=== PATIENT | male | born 1935 | race Caucasian/White ===

== ENCOUNTER → 2017-01-16 | Outpatient (CLI) | payer OTHER ==
[~2017-01-16] MED LIST: ALBU8.5H8 INH; CITA40TA5 PO; DUTA0.5C PO; GABA300C10 PO; GABA600T2 PO; GEMF600T3 PO; TAMS0.4C2 PO; TRAM50TA2 PO; VIT1CAPS42 PO; ZOLP10TA5 PO
== END | disposition home or self-care (01) ==
LOC: RAD 08:31
PROVIDERS: ATTEND Orthopaedic Surgery Orthopaedic Surgery of the Spine
DX: M51.36 Other intervertebral disc degeneration, lumbar region (principal); M51.47 Schmorl's nodes, lumbosacral region; M51.27 Other intervertebral disc displacement, lumbosacral region; M48.07 Spinal stenosis, lumbosacral region
CPT/HCPCS: 72148

== ENCOUNTER 2018-05-25 17:27 | Inpatient (IN) | payer OTHER ==
[~2018-05-25] VITALS: Ht 172.7 cm; Wt 91.1 kg
[~2018-05-25 17:27] MED LIST changes: -GABA600T2 PO; +GABA600T7 PO; -GEMF600T3 PO; +GEMF600T8 PO
--- NOTE | 2018-05-25 17:49 | NUR ---
C/O left sided chest pain radiating to left shoulder since eating pizza earlier today. Patient states, "I think it's just acid reflux."
--- NOTE | 2018-05-25 17:49 | NUR ---
Assumed care of patient. C/O cough since Sunday. Dx'ed with UC with PN, taking abx for several days. Patient reports feeling slightly better, but then increased SOB today. 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 Family member at bedside. Will continue to monitor.
[2018-05-25] MEDS ORDERED: CITA40TA5 PO (18:16)
[2018-05-25] MEDS ORDERED: AMLO-150 PO (18:16)
[2018-05-25] MEDS ORDERED: ROPI1TAB2 PO (18:16)
[2018-05-25] MEDS ORDERED: NABU500T PO (18:16)
[2018-05-25] MEDS ORDERED: FAMO20TA7 PO (18:16)
[2018-05-25] MEDS ORDERED: OMEP40CA6 PO (18:16)
[2018-05-25] MEDS ORDERED: FINA5TAB4 PO (18:16)
[2018-05-25] MEDS ORDERED: FLUT1BLS3 PO (18:16)
[2018-05-25] MEDS ORDERED: [UNRECOGNIZED DRUG - OTHER] PO (18:16)
[2018-05-25] MEDS ORDERED: TAMS0.4C2 PO (18:16)
[2018-05-25] MEDS ORDERED: ASPIRIN 81 MG TABLET CHEW ONE (18:19)
[2018-05-25 18:21] LABS: BASOPHILS # (AUTO) 0.04 x10^3/uL (0-0.1); BASOPHILS % (AUTO) 0 % (0-1); EOSINOPHILS # (AUTO) 0.35 x10^3/uL (0-0.4); EOSINOPHILS % (AUTO) 3 % (1-7); LYMPHOCYTES # (AUTO) 1.32 x10^3/uL (1-3.4); LYMPHOCYTES % (AUTO) 10 % (22-44); MD NO; MEAN CORPUSCULAR HEMOGLOBIN 30.8 pg (27.5-34.5); MEAN CORPUSCULAR HGB CONC 34.2 g/dL (33.2-36.2); MEAN CORPUSCULAR VOLUME 89.9 fL (81-97); MEAN PLATELET VOLUME 8.7 fL (7.4-10.4); MONOCYTES # (AUTO) 1.22 x10^3/uL (0.2-0.8); MONOCYTES % (AUTO) 10 % (2-9); NEUTROPHILS # (AUTO) 9.93 x10^3/uL (1.8-6.8); NEUTROPHILS % (AUTO) 77 % (42-75); PLATELET COUNT 358 x10^3/uL (130-400); RED BLOOD COUNT 4.13 x10^6/uL (4.38-5.82); RED CELL DISTRIBUTION WIDTH 14.9 % (9.4-14.8)
[2018-05-25] MEDS ORDERED: CALCIUM CARBONATE 500 MG TAB.CHEW PO ONE (18:30)
[2018-05-25] MEDS ORDERED: ASPIRIN 81 MG TABLET CHEW PO ONE (18:30)
[2018-05-25] MEDS ORDERED: CALCIUM CARBONATE 500 MG TAB.CHEW ONE (18:30)
[2018-05-25 18:32] LABS: ALBUMIN 2.9 g/dL (3.4-5.0); ANION GAP 8 mmol/L (5-15); CALCIUM 8.6 mg/dL (8.5-10.1); CHLORIDE 111 mmol/L (98-107); INTERNATIONAL NORMALIZED RATIO 1.03 (0.93-1.1); PROTHROMBIN TIME 10.9 Seconds (9.6-11.5)
[2018-05-25 18:38] LABS: ALANINE AMINOTRANSFERASE 26 U/L (12-78); ALKALINE PHOSPHATASE 137 U/L (45-117); BILIRUBIN,TOTAL 0.3 mg/dL (0.2-1.0); CREATININE 1.16 mg/dL (0.7-1.3); TOTAL PROTEIN 7.9 g/dL (6.4-8.2); TROPONIN I < 0.015 ng/mL (0.000-0.045)
--- NOTE | 2018-05-25 18:48 | NUR ---
IV started. VSS. No other needs at this time.
--- NOTE | 2018-05-25 19:22 | NUR ---
Report to JESE Cobos.
[2018-05-25 19:53] VITALS: BP 141/56
[2018-05-25 20:45] VITALS: BP 141/56
[2018-05-25] MEDS ORDERED: SODIUM CHLORIDE 0.9% 1,000 ML IV SCH (21:13)
[2018-05-25] MEDS ORDERED: DOCUSATE 100 MG CAPSULE PO PRN (21:30)
[2018-05-25] MEDS ORDERED: LABETALOL 5MG/ML, 20ML IVPush PRN (21:30)
[2018-05-25] MEDS ORDERED: POLYETHYLENE GLYCOL 17 GM PACKET PO PRN (21:30)
[2018-05-25] MEDS ORDERED: ONDANSETRON 2MG/ML, 2ML IVPush PRN (21:30)
[2018-05-25] MEDS ORDERED: morphine SULFATE 10 MG/ML, 1ML IVPush PRN (21:30)
[2018-05-25] MEDS ORDERED: ROPINIROLE HCL 1 MG PO SCH (21:30)
[2018-05-25] MEDS ORDERED: BISACODYL 10 MG SUPP PR PRN (21:30)
[2018-05-25] MEDS ORDERED: PROMETHAZINE 25 MG/ML, 1ML IM PRN (21:30)
[2018-05-25] MEDS ORDERED: ONDANSETRON ODT 4 MG PO PRN (21:30)
[2018-05-25] MEDS ORDERED: GABAPENTIN 300 MG CAPSULE PO PRN (21:30)
[2018-05-25] MEDS ORDERED: hydrALAzine 20 MG/ML, 1ML IVPush PRN (21:30)
[2018-05-25] MEDS: CEFTRIAXONE PMX 2GM/50ML 50 ML IV SCH (21:45)
[2018-05-25 22:05] LABS: FREE T4 (FREE THYROXINE) 2.43 ng/dL (0.76-1.46); THYROID STIMULATING HORMONE 2.35 mIU/L (0.358-3.740)
[2018-05-25 22:24] LABS: HEMOGLOBIN A1C 5.7 % (4.2-6.3)
[2018-05-25] MEDS: GEMFIBROZIL 600 MG TABLET PO SCH (22:34)
[2018-05-25] MEDS: GUAIFENESIN 200 MG TABLET PO SCH (22:34)
[2018-05-25] MEDS: ROPINIROLE 1MG TABLET PO SCH (22:34)
[2018-05-25] MEDS: HEPARIN 5,000 UNITS/ML, 1ML SQ SCH (22:35)
[2018-05-25] MEDS: DOXYCYCLINE 100 MG in DEXTROSE 5% 250 ML IV SCH (23:23)
[2018-05-25] MEDS ORDERED: ALBUTEROL SULFATE 2.5 MG/3 ML NPPB PRN (23:30)
[2018-05-26 02:54] VITALS: BP 135/63
[2018-05-26 04:58] LABS: BASOPHILS # (AUTO) 0.05 x10^3/uL (0-0.1); BASOPHILS % (AUTO) 0 % (0-1); EOSINOPHILS # (AUTO) 0.35 x10^3/uL (0-0.4); EOSINOPHILS % (AUTO) 3 % (1-7); LYMPHOCYTES # (AUTO) 1.59 x10^3/uL (1-3.4); LYMPHOCYTES % (AUTO) 13 % (22-44); MD NO; MEAN CORPUSCULAR HEMOGLOBIN 30.3 pg (27.5-34.5); MEAN CORPUSCULAR HGB CONC 33.5 g/dL (33.2-36.2); MEAN CORPUSCULAR VOLUME 90.3 fL (81-97); MEAN PLATELET VOLUME 8.9 fL (7.4-10.4); MONOCYTES # (AUTO) 1.23 x10^3/uL (0.2-0.8); MONOCYTES % (AUTO) 10 % (2-9); NEUTROPHILS # (AUTO) 9.01 x10^3/uL (1.8-6.8); NEUTROPHILS % (AUTO) 74 % (42-75); PLATELET COUNT 319 x10^3/uL (130-400); RED BLOOD COUNT 3.86 x10^6/uL (4.38-5.82); RED CELL DISTRIBUTION WIDTH 14.7 % (9.4-14.8)
[2018-05-26 05:04] LABS: ALBUMIN 2.8 g/dL (3.4-5.0); ANION GAP 8 mmol/L (5-15); CALCIUM 8.5 mg/dL (8.5-10.1); CHLORIDE 111 mmol/L (98-107); CREATININE 1.14 mg/dL (0.7-1.3)
[2018-05-26 05:07] LABS: ALANINE AMINOTRANSFERASE 22 U/L (12-78); ALKALINE PHOSPHATASE 116 U/L (45-117); BILIRUBIN,TOTAL 0.3 mg/dL (0.2-1.0); CHOL/HDL RATIO 3.2; CHOLESTEROL, TOTAL 108 mg/dL (140-239); HDL CHOL % 31 % (26-37); HDL CHOLESTEROL (DIRECT) 34 mg/dL (40-60); LDL CHOLESTEROL,CALCULATED 60 mg/dL (54-169); LDL/HDL RATIO 1.8 (0.5-3.0); TOTAL PROTEIN 7.3 g/dL (6.4-8.2); TRIGLYCERIDES 72 mg/dL (50-200); VLDL CHOLESTEROL 14 mg/dL (0-25)
[2018-05-26 06:41] VITALS: BP 127/71
[2018-05-26] MEDS: OMEPRAZOLE 20 MG CAPSULE.DR PO SCH (08:04)
[2018-05-26] MEDS: GEMFIBROZIL 600 MG TABLET PO SCH ×2 (08:04→21:47)
[2018-05-26] MEDS: GABAPENTIN 300 MG CAPSULE PO SCH (08:04)
[2018-05-26] MEDS: TAMSULOSIN 0.4 MG CAP.ER.24H PO SCH (08:04)
[2018-05-26] MEDS: AMLODIPINE 5 MG TABLET PO SCH (08:04)
[2018-05-26] MEDS: FINASTERIDE 5 MG TABLET PO SCH (08:04)
[2018-05-26] MEDS: CITALOPRAM 20 MG TABLET PO SCH (08:04)
[2018-05-26] MEDS: HEPARIN 5,000 UNITS/ML, 1ML SQ SCH ×3 (08:05→22:58)
[2018-05-26] MEDS ORDERED: OMNIPAQUE 350 MG/ML, 75ML BOTTLE ONE (09:06)
[2018-05-26] MEDS: GUAIFENESIN 200 MG TABLET PO SCH ×2 (10:25→21:48)
[2018-05-26] MEDS: DOXYCYCLINE 100 MG in DEXTROSE 5% 250 ML IV SCH ×2 (10:25→22:58)
[2018-05-26 12:35] VITALS: BP 131/60
[2018-05-26] MEDS: ACETAMINOPHEN 325 MG TABLET PO PRN ×2 (15:44→21:48)
[2018-05-26 20:53] VITALS: BP 171/69
[2018-05-26] MEDS: ROPINIROLE 1MG TABLET PO SCH (21:47)
[2018-05-26] MEDS: CEFTRIAXONE PMX 2GM/50ML 50 ML IV SCH (21:47)
[2018-05-27 01:48] VITALS: BP 148/57
[2018-05-27 06:33] VITALS: BP 154/64
[2018-05-27] MEDS: AMLODIPINE 5 MG TABLET PO SCH (08:51)
[2018-05-27] MEDS: FINASTERIDE 5 MG TABLET PO SCH (08:51)
[2018-05-27] MEDS: HEPARIN 5,000 UNITS/ML, 1ML SQ SCH ×2 (08:51→15:55)
[2018-05-27] MEDS: OMEPRAZOLE 20 MG CAPSULE.DR PO SCH (08:51)
[2018-05-27] MEDS: DOXYCYCLINE 100 MG in DEXTROSE 5% 250 ML IV SCH ×2 (08:52→21:39)
[2018-05-27] MEDS: TAMSULOSIN 0.4 MG CAP.ER.24H PO SCH (08:52)
[2018-05-27] MEDS: GEMFIBROZIL 600 MG TABLET PO SCH ×2 (08:52→20:51)
[2018-05-27] MEDS: CITALOPRAM 20 MG TABLET PO SCH (08:52)
[2018-05-27] MEDS: GABAPENTIN 300 MG CAPSULE PO SCH (08:52)
[2018-05-27] MEDS: GUAIFENESIN 200 MG TABLET PO SCH ×2 (08:52→20:51)
[2018-05-27 12:01] VITALS: BP 130/59
[2018-05-27 20:19] VITALS: BP 132/70
[2018-05-27] MEDS: CEFTRIAXONE PMX 2GM/50ML 50 ML IV SCH (20:50)
[2018-05-27] MEDS: ROPINIROLE 1MG TABLET PO SCH (20:51)
[2018-05-28 01:55] VITALS: BP 129/54
[2018-05-28 06:52] VITALS: BP 170/71
[2018-05-28 07:34] VITALS: BP 149/69
[2018-05-28] MEDS: HEPARIN 5,000 UNITS/ML, 1ML SQ SCH ×4 (07:43→23:28)
[2018-05-28] MEDS ORDERED: LIDOCAINE-MPF 1%, 5ML ONE (08:05)
[2018-05-28] MEDS ORDERED: FENTANYL PF 100 MCG/2ML ONE (08:36)
[2018-05-28] MEDS ORDERED: MIDAZOLAM 1 MG/ML, 5ML ONE (08:36)
[2018-05-28] MEDS ORDERED: NALOXONE 1 MG/ML, 2ML ONE (08:37)
[2018-05-28] MEDS ORDERED: FLUMAZENIL 0.1 MG/1 ML, 5ML ONE (08:37)
[2018-05-28] MEDS: DOXYCYCLINE 100 MG in DEXTROSE 5% 250 ML IV SCH ×2 (11:01→23:28)
[2018-05-28 12:33] VITALS: BP 143/67
[2018-05-28] MEDS: FINASTERIDE 5 MG TABLET PO SCH (13:10)
[2018-05-28] MEDS: GUAIFENESIN 200 MG TABLET PO SCH ×2 (13:10→23:28)
[2018-05-28] MEDS: OMEPRAZOLE 20 MG CAPSULE.DR PO SCH (13:10)
[2018-05-28] MEDS: GABAPENTIN 300 MG CAPSULE PO SCH (13:11)
[2018-05-28] MEDS: TAMSULOSIN 0.4 MG CAP.ER.24H PO SCH (13:11)
[2018-05-28] MEDS: AMLODIPINE 5 MG TABLET PO SCH (13:11)
[2018-05-28] MEDS: CITALOPRAM 20 MG TABLET PO SCH (13:11)
[2018-05-28] MEDS: GEMFIBROZIL 600 MG TABLET PO SCH ×2 (13:11→21:13)
[2018-05-28] MEDS: HYDROcodone/APAP 5/325 TABLET PO PRN ×2 (15:49→21:14)
[2018-05-28] MEDS: ROPINIROLE 1MG TABLET PO SCH (21:13)
[2018-05-28] MEDS: CEFTRIAXONE PMX 2GM/50ML 50 ML IV SCH (21:14)
[2018-05-28 21:36] VITALS: BP 139/67
[2018-05-29 00:49] VITALS: BP 137/67
[2018-05-29] MEDS: HEPARIN 5,000 UNITS/ML, 1ML SQ SCH ×2 (07:44→15:48)
[2018-05-29 08:32] VITALS: BP 168/68
[2018-05-29] MEDS: FINASTERIDE 5 MG TABLET PO SCH (09:28)
[2018-05-29] MEDS: CITALOPRAM 20 MG TABLET PO SCH (09:58)
[2018-05-29] MEDS: GEMFIBROZIL 600 MG TABLET PO SCH (09:58)
[2018-05-29] MEDS: GABAPENTIN 300 MG CAPSULE PO SCH (09:58)
[2018-05-29] MEDS: OMEPRAZOLE 20 MG CAPSULE.DR PO SCH (09:58)
[2018-05-29] MEDS: AMLODIPINE 5 MG TABLET PO SCH (09:58)
[2018-05-29] MEDS: TAMSULOSIN 0.4 MG CAP.ER.24H PO SCH (09:59)
[2018-05-29] MEDS: DOXYCYCLINE 100 MG in DEXTROSE 5% 250 ML IV SCH (11:21)
[2018-05-29] MEDS: GUAIFENESIN 200 MG TABLET PO SCH (13:11)
[2018-05-29 14:34] VITALS: BP 123/63
[2018-05-29] MEDS ORDERED: AMOX1TAB64 PO (14:38)
== END 2018-05-29 16:37 | disposition home health service (06) | DRG 177 ==
LOC: ED 18:20 → EDIP 18:53 → 3NE 19:43 → DCLOUNGE 05-29 16:26
PROVIDERS: ADMIT Internal Medicine; ATTEND Family Medicine
PROC: 0BBC3ZX Excision of Right Upper Lung Lobe, Percutaneous Approach, Diagnostic (ICD-10-PCS; principal; 2018-05-28)
PROC: 0W9G3ZX Drainage of Peritoneal Cavity, Percutaneous Approach, Diagnostic (ICD-10-PCS; 2018-05-28)
DX: J15.6 Pneumonia due to other Gram-negative bacteria (principal); J85.1 Abscess of lung with pneumonia; J44.0 Chronic obstructive pulmonary disease with (acute) lower respiratory infection; E44.0 Moderate protein-calorie malnutrition; J93.9 Pneumothorax, unspecified; M19.90 Unspecified osteoarthritis, unspecified site; D64.9 Anemia, unspecified; E78.1 Pure hyperglyceridemia; F32.9 Major depressive disorder, single episode, unspecified; I10 Essential (primary) hypertension; K21.9 Gastro-esophageal reflux disease without esophagitis; K44.9 Diaphragmatic hernia without obstruction or gangrene; N40.0 Benign prostatic hyperplasia without lower urinary tract symptoms; Z87.891 Personal history of nicotine dependence; Z68.30 Body mass index [BMI] 30.0-30.9, adult; Z88.8 Allergy status to other drugs, medicaments and biological substances
CPT/HCPCS: 32405; 36415; 49405; 71045; 71260; 75989; 80053; 80061; 83036; 83735; 84439; 84443; 84484; 85025; 85610; 85730; 87015; 87040; 87070; 87075; 87077; 87102; 87116; 87181; 87205; 87206; 88305; 88341; 88342; 93005; 99156; 99157; 99285; G0378; J0696; J1644; J2250; J3010; J7060; J7613; Q0162; Q9967; J2310; J7030

== ENCOUNTER 2018-08-30 13:47 | Emergency (ER) | payer OTHER ==
[~2018-08-30] VITALS: Ht 172.7 cm; Wt 96.0 kg
[~2018-08-30 13:47] MED LIST changes: +AMLO-150 PO; +AMOX1TAB64 PO; +FAMO20TA7 PO; +FINA5TAB4 PO; +FLUT1BLS3 PO; +NABU500T PO; +OMEP40CA6 PO; +ROPI1TAB2 PO; +[UNRECOGNIZED DRUG - OTHER] PO
[2018-08-30 14:24] VITALS: BP 136/56
== END 2018-08-30 14:46 | disposition home or self-care (01) ==
LOC: ED 14:44
DX: H72.91 Unspecified perforation of tympanic membrane, right ear (principal); H66.001 Acute suppurative otitis media without spontaneous rupture of ear drum, right ear; I10 Essential (primary) hypertension; J44.9 Chronic obstructive pulmonary disease, unspecified; M19.90 Unspecified osteoarthritis, unspecified site; Z90.89 Acquired absence of other organs
CPT/HCPCS: 99283

== ENCOUNTER 2019-07-01 17:54 | Emergency (ER) | payer MEDICARE, OTHER ==
[~2019-07-01] VITALS: Ht 172.7 cm; Wt 94.3 kg
[~2019-07-01 17:54] MED LIST changes: +OMEP40CA42 PO; -OMEP40CA6 PO; -ROPI1TAB2 PO; +ROPI1TAB4 PO
[2019-07-01] MEDS ORDERED: NABUMETONE (18:24)
[2019-07-01] MEDS ORDERED: TRAZODONE (18:25)
[2019-07-01] MEDS ORDERED: UNKNOWN INHALER (18:27)
--- NOTE | 2019-07-01 18:28 | NUR ---
BREAK RN: PT SEEN BY DR FELDER. PT REPORTS SOB AND COUGHING. VS STABLE. NO ACUTE DISTRESS NOTED. LAB IN ROOM. FLU SWAB SENT. FAMILY AT BEDSIDE. CALL LIGHT IN PLACE. WILL CONTINUE TO MOINTOR WHILE PRIMARY RN IS ON BREAK.
[2019-07-01] MEDS ORDERED: [UNRECOGNIZED DRUG - REMARK] (18:30)
[2019-07-01] MEDS ORDERED: SODIUM CHLORIDE FLUSH 10ML SYR IVF ONE (18:30)
[2019-07-01 18:43] LABS: BASOPHILS # (AUTO) 0.05 x10^3/uL (0-0.1); BASOPHILS % (AUTO) 1 % (0-1); EOSINOPHILS # (AUTO) 0.36 x10^3/uL (0-0.4); EOSINOPHILS % (AUTO) 4 % (1-7); LYMPHOCYTES # (AUTO) 2.16 x10^3/uL (1-3.4); LYMPHOCYTES % (AUTO) 25 % (22-44); MD NO; MEAN CORPUSCULAR HGB CONC 33.4 g/dL (33.2-36.2); MEAN CORPUSCULAR VOLUME 92.9 fL (81-97); MEAN PLATELET VOLUME 9.4 fL (7.4-10.4); MONOCYTES # (AUTO) 1.25 x10^3/uL (0.2-0.8); MONOCYTES % (AUTO) 14 % (2-9); NEUTROPHILS # (AUTO) 4.96 x10^3/uL (1.8-6.8); NEUTROPHILS % (AUTO) 57 % (42-75); PLATELET COUNT 281 x10^3/uL (130-400); RED BLOOD COUNT 4.79 x10^6/uL (4.38-5.82); RED CELL DISTRIBUTION WIDTH 14.6 % (9.4-14.8)
[2019-07-01 18:52] LABS: ALANINE AMINOTRANSFERASE 23 U/L (12-78); ALBUMIN 3.5 g/dL (3.4-5.0); ANION GAP 10 mmol/L (5-15); CALCIUM 9.5 mg/dL (8.5-10.1); CHLORIDE 110 mmol/L (98-107)
--- NOTE | 2019-07-01 18:53 | NUR ---
REPORT GIVEN TO JESE CHILDERS
--- NOTE | 2019-07-01 18:55 | NUR ---
REPORT TO JESE PERAZA
[2019-07-01 18:56] LABS: ALKALINE PHOSPHATASE 98 U/L (45-117); BILIRUBIN,TOTAL 0.3 mg/dL (0.2-1.0); TOTAL PROTEIN 7.8 g/dL (6.4-8.2); TROPONIN I < 0.015 ng/mL (0.000-0.045)
--- NOTE | 2019-07-01 18:58 | NUR ---
PT RESTING ON [place] WITH FAMILY AT FOR SUPPORT. PT UPDATED ON POC. PT REPORTS "NOT FEELING WELL" X2 DAYS. REPORTS SOB, SINUS PRESSURE, WHATLEY, AND COUGH WELL DIFFICULTY SLEEPING. PT DENIES ANY OTHER C/O AT THIS TIME. PT ON MONITORING, CALL LIGHT WITHIN REACH, X2 RAILS RAISED. ROOM DIMMED FOR PT COMFORT.
[2019-07-01 19:01] LABS: RAPID INFLUENZA A Negative (Negative); RAPID INFLUENZA B Negative (Negative)
--- NOTE | 2019-07-01 19:38 | NUR ---
ERP IN ROOM TO DISCUSS POC WITH PT.
[2019-07-01 19:53] VITALS: BP 171/66
== END 2019-07-01 20:00 | disposition home or self-care (01) ==
LOC: ED 18:54
DX: J20.9 Acute bronchitis, unspecified (principal); I10 Essential (primary) hypertension; J44.9 Chronic obstructive pulmonary disease, unspecified; Z90.89 Acquired absence of other organs; Z87.891 Personal history of nicotine dependence
CPT/HCPCS: 36415; 71045; 80053; 83880; 84484; 85025; 87400; 93005; 99284; 99285

== ENCOUNTER 2019-09-03 16:37 | Emergency (ER) | payer MEDICARE ==
[~2019-09-03] VITALS: Ht 172.7 cm; Wt 96.2 kg
[~2019-09-03 16:37] MED LIST changes: +NABUMETONE; +TRAZODONE; +UNKNOWN INHALER; +[UNRECOGNIZED DRUG - REMARK]
--- NOTE | 2019-09-03 17:10 | NUR ---
PT AMBULATED TO THE BR W/ A STEADY GAIT.
--- NOTE | 2019-09-03 17:26 | NUR ---
THIS IS A 84 YO M W/ C/O SOB, COUGH AND CHILLS X3 WEEKS. PT REPORTS HX OF COPD BUT DOES NOT WEAR O2 AT HOME. PT REPORTS HE HAS BEEN ON HTN MEDS IN THE PAST BUT HIS MD STOPPED THEM. CURRENT BP 205/98, OTHER VS WDL. DENIES CP/WHATLEY/N/V PT IS RESTING ON [employer] W/ CALL LIGHT IN REACH, SIDE RAILS UPX2. LAB IN ROOM. PT MEDICATED PER EMAR. AWAITING RESULTS.
[2019-09-03 17:29] LABS: BASOPHILS # (AUTO) 0.01 x10^3/uL (0-0.1); BASOPHILS % (AUTO) 0 % (0-1); EOSINOPHILS # (AUTO) 0.39 x10^3/uL (0-0.4); EOSINOPHILS % (AUTO) 4 % (1-7); LYMPHOCYTES # (AUTO) 1.24 x10^3/uL (1-3.4); LYMPHOCYTES % (AUTO) 13 % (22-44); MD NO; MEAN CORPUSCULAR HEMOGLOBIN 30.9 pg (27.5-34.5); MEAN CORPUSCULAR HGB CONC 33.4 g/dL (33.2-36.2); MEAN CORPUSCULAR VOLUME 92.6 fL (81-97); MEAN PLATELET VOLUME 9.4 fL (7.4-10.4); MONOCYTES # (AUTO) 1.05 x10^3/uL (0.2-0.8); MONOCYTES % (AUTO) 11 % (2-9); NEUTROPHILS # (AUTO) 6.79 x10^3/uL (1.8-6.8); NEUTROPHILS % (AUTO) 72 % (42-75); PLATELET COUNT 298 x10^3/uL (130-400); RED BLOOD COUNT 4.83 x10^6/uL (4.38-5.82); RED CELL DISTRIBUTION WIDTH 14.8 % (9.4-14.8)
[2019-09-03] MEDS ORDERED: DOXYCYCLINE 100MG TABLET PO ONE (17:30)
[2019-09-03] MEDS ORDERED: DOXYCYCLINE 100MG TABLET ONE (17:32)
--- NOTE | 2019-09-03 17:32 | NUR ---
METAL CABINET FINISHER: JOEY BEAL [phone] DAUGHTER CALLED AND WILL NEED A CALL WHEN DISPOSITION.
[2019-09-03 17:40] LABS: ALANINE AMINOTRANSFERASE 28 U/L (12-78); ALBUMIN 3.9 g/dL (3.4-5.0); ANION GAP 5 mmol/L (5-15); CALCIUM 9.4 mg/dL (8.5-10.1); CHLORIDE 110 mmol/L (98-107)
[2019-09-03 17:43] LABS: ALKALINE PHOSPHATASE 96 U/L (45-117); BILIRUBIN,TOTAL 0.5 mg/dL (0.2-1.0); CREATININE 1.59 mg/dL (0.7-1.3); TOTAL PROTEIN 8.4 g/dL (6.4-8.2)
[2019-09-03 17:50] VITALS: BP 202/84
[2019-09-03] MEDS ORDERED: AMLODIPINE 5 MG TABLET ONE (17:55)
[2019-09-03] MEDS ORDERED: CEFDINIR 300 MG CAPSULE ONE (17:59)
[2019-09-03] MEDS ORDERED: AMLODIPINE 5 MG TABLET PO ONE (18:00)
[2019-09-03] MEDS ORDERED: CEFDINIR 300 MG CAPSULE PO ONE (18:00)
--- NOTE | 2019-09-03 18:03 | NUR ---
PT MEDICATED PER EMAR.
== END 2019-09-03 19:02 | disposition home or self-care (01) ==
LOC: ED 17:15
DX: J15.9 Unspecified bacterial pneumonia (principal); J45.909 Unspecified asthma, uncomplicated; I10 Essential (primary) hypertension; Z87.891 Personal history of nicotine dependence
CPT/HCPCS: 36415; 71045; 80053; 83605; 84145; 85025; 87040; 93005; 99285